=== PATIENT | male | born 1960 ===

== ENCOUNTER 2018-03-30 00:47 | Outpatient (CLI) | payer SELFPAY ==
[2018-03-30 11:29] LABS: HEMOGLOBIN A1C 5.9 % (4.5-6.2)
[2018-03-30 11:37] LABS: CHOL/HDL RATIO 3.21 (0.00-4.99)
== END 2018-03-30 23:59 | disposition home or self-care (01) ==
LOC: HW HEART 00:47
DX: Z13.6 Encounter for screening for cardiovascular disorders (principal)
CPT/HCPCS: 36415

== ENCOUNTER 2021-04-02 10:52 | Outpatient (CLI) | payer SELFPAY | END 2021-04-02 23:59 | disposition home or self-care (01) | LOC: VAS 10:52 | DX: Z13.6 Encounter for screening for cardiovascular disorders (principal) ==